=== PATIENT | female | born 1995 | race African-American/Black ===

== ENCOUNTER 2017-09-16 21:41 | Emergency (ER) | payer OTHER, MEDICAID ==
[~2017-09-16] VITALS: Ht 157.5 cm; Wt 95.3 kg
[~2017-09-16 21:41] MED LIST: ABILIFY2 MG ORAL; BACITRACIN15 GM TOPIC; BACTRIM-DS1 EA ORAL; BACTROBAN NASAL1 GM NASAL; BENADRYL25 MG ORAL; HYDROCORTISONE28 G2 TP; KEFLEX500 MG ORAL; KENALOG 0.1% CR15 GM APPLIC; MEDROL DOSEPAK4 MG ORAL; MIRALAX17 GM ORAL; PROTONIX40 MG ORAL; RESTORIL15 MG ORAL; RISPERDAL1 MG ORAL; SEROQUEL50 MG ORAL
[2017-09-16] MEDS ORDERED: Lidocaine 1% Plain 30 ml INJ ONE (23:15)
[2017-09-17] MEDS ORDERED: Bacitracin Oint UD TOPIC ONE (00:30)
[2017-09-17 00:33] VITALS: BP 123/78
[2017-09-17] MEDS ORDERED: IBUPROFEN600 MG ORAL (00:36)
[2017-09-17 00:37] VITALS: BP 123/78
--- NOTE | 2017-09-17 05:45 | Emergency Room Report ---
History of Present Illness General Chief Complaint: Laceration Source: Patient Present Illness HPI 22-year-old female, presenting with right finger laceration. 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, male sustained laceration middle finger on the inside and outside, pain with movement , no other injuries tetanus is up to date Allergies: Coded Allergies: No Known Allergies (Unverified , 06/28/12) Patient History Past Medical History: see triage record Past Surgical History: none Pertinent Family History: none Last Menstrual Period: 09/05/17 Reviewed Nursing Documentation: PMH: Agreed, PSxH: Agreed Nursing Documentation-PMH Hx Cardiac Problems: No - Eczema Hx Cancer: No Hx Gastrointestinal Problems: No Hx Neurological Problems: No Review of Systems All Other Systems: negative except mentioned in HPI Physical Exam Vital Signs Date Time Temp Pulse Resp B/P (MAP) Pulse Ox O2 Delivery O2 Flow Rate FiO2 09/16/17 21:55 98.6 99 18 119/76 99 Room Air Sp02 EP Interpretation: reviewed, normal General Appearance: normal inspection, well appearing, no apparent distress, alert, GCS 15, non-toxic Head: normocephalic, atraumatic Eyes: bilateral eye normal inspection, bilateral eye PERRL, bilateral eye EOMI ENT: normal ENT inspection, normal pharynx, normal voice, moist mucus membranes Neck: normal inspection, full range of motion, supple Respiratory: normal inspection, lungs clear, normal breath sounds, no respiratory distress, no retraction, no wheezing, speaking full sentences, chest symmetrical Cardiovascular #1: normal inspection, regular rate, rhythm, no edema, normal capillary refill Cardiovascular #2: 2+ radial (R), 2+ radial (L) Gastrointestinal: normal inspection, non tender, soft, non-distended, no guarding Musculoskeletal: other - Right middle finger with mild edema, laceration noted 1 cm palmar aspect and dorsal aspect, no active bleeding, slightly gaping, limited range of motion secondary to pain, FDS and FDP and Neurologic: normal inspection, alert, oriented x3, responsive, motor strength/ tone normal, sensory intact, normal gait, speech normal Psychiatric: normal inspection, judgement/insight normal, memory normal Skin: normal inspection, normal color, no rash, warm/dry, well hydrated, normal turgor Procedures Laceration/Wound Repair Laceration/Wound Repair : Consent: Verbal Wound Location: upper extremity Wound's Depth, Shape: superficial Wound Length (cm): 3 - = Wound Explored: clean Irrigated w/ Saline (ccs): 500 Betadine Prep?: Yes Anesthesia: 1% Lidocaine Volume Anesthetic (ccs): 5 Wound Repaired With: sutures Suture Size/Type: 4:0 Number of Sutures: 7 Layer Closure?: Yes Sterile Dressing Applied?: Yes Splint Applied?: No Sling Applied?: No Patient Tolerated: Well Complications: None Medical Decision Making Diagnostic Impression: Primary Impression: Hand contusion Additional Impression: Laceration ER Course 22-year-old female with right sided finger laceration and pain after lender fell onto her hand Laceration Rule out fracture ER course: Laceration repaired, bacitracin with sterile dressing applied. Disposition: Patient will be discharged home. Strict return precautions discussed with patient such as fever, chills, increasing bleeding to site, purulent drainage, rapid swelling or redness to area. Patient verbalizes understanding. Patient sis informed of inevitable scar that will result from laceration despite repair. Pt instructed to avoid sun exposure to decrease the appearance of scar. Patient instructed to return to ED or their primary care doctor in 14 days for removal of sutures. Patient agrees with plan. Please note that this Emergency Department Report was dictated using [employer] technology software, occasionally this can lead to erroneous entry secondary to interpretation by the dictation equipment Xray: Right hand 3 view Indication: Pain EP Interpretation: Yes Interpretation: No dislocation, no soft tissue swelling, no fractures Impression: No acute disease Electronically signed by Zita Ray MD Last Vital Signs Date Time Temp Pulse Resp B/P (MAP) Pulse Ox O2 Delivery O2 Flow Rate FiO2 09/17/17 00:37 98.6 73 18 123/78 99 Room Air Disposition: HOME, SELF-CARE Condition: Improved Scripts Ibuprofen* (MOTRIN*) 600 Mg Tablet 600 MG ORAL Q8H Y for For Pain, #30 TAB 0 Refills Prov: Zita Ray M.D. 09/17/17 Referrals: NOT CHOSEN IPA/,REFERRING (PCP) Patient Instructions: Laceration Care, Adult, Contusion, [id number] Additional Instructions: FOLLOW UP WITH YOUR PRIMARY CARE DOCTOR OR EMERGENCY ROOM IN 14 DAYS FOR SUTURE REMOVAL Zita Ray M.D. Sep 17, 2017 05:45
--- NOTE | 2017-09-17 11:15 | Diagnostic Imaging Report ---
Clinical Indication:PAIN work injury, trauma, laceration third digit Technique: 3 views of the right hand Comparison: None Findings: There is marked ulnar minus variance. No acute fractures. No dislocations. Radiopaque foreign bodies are seen within the soft tissues adjacent to the third proximal phalanx. There is associated soft tissue swelling. No underlying bony disruption. Impression: No acute bony trauma Radiopaque foreign bodies seen within the soft tissues of the third digit. This was discussed by phone with Dr. Young in the emergency room at the time of interpretation
[2017-09-17] MEDS ORDERED: PROZAC20 MG ORAL (22:06)
[2017-09-17] MEDS ORDERED: ZYPREXA10 MG ORAL (22:06)
[2017-09-17] MEDS ORDERED: DOXYCYCLINE MO100 MG ORAL (23:22)
== END 2017-09-17 00:38 | disposition home or self-care (01) ==
LOC: EMR 22:18
DX: S61.222A Laceration with foreign body of right middle finger without damage to nail, initial encounter (principal); W29.0XXA Contact with powered kitchen appliance, initial encounter; Y92.511 Restaurant or cafe as the place of occurrence of the external cause; Y99.0 Civilian activity done for income or pay
CPT/HCPCS: 12002; 73130; 99284; J2001

== ENCOUNTER 2017-09-17 22:00 | Emergency (ER) | payer MEDICAID, OTHER ==
[~2017-09-17] VITALS: Ht 157.5 cm; Wt 95.3 kg
[~2017-09-17 22:00] MED LIST changes: +IBUPROFEN600 MG ORAL
[2017-09-17] MEDS ORDERED: PROZAC20 MG ORAL (22:06)
[2017-09-17] MEDS ORDERED: ZYPREXA10 MG ORAL (22:06)
[2017-09-17 22:26] VITALS: BP 141/94
[2017-09-17] MEDS ORDERED: Cephalexin 500mg cap ORAL ONE (23:15)
[2017-09-17] MEDS ORDERED: DOXYCYCLINE MO100 MG ORAL (23:22)
--- NOTE | 2017-09-17 23:22 | Emergency Room Report ---
History of Present Illness General Chief Complaint: Pain Source: Patient Present Illness HPI This is a 22-year-old female who is right-hand dominant. She presents with chief complaint for recheck on finger injury. She was seen here yesterday for trauma from work. Her hand was crushed by accusing machine. She had laceration to the right third finger and abrasion to the fourth finger. X-rays show foreign body. She was called back for evaluation. Patient said there swelling but pain is manageable. Did not have to take any medicine for it. No antibiotics. No fever or chills. No drainage. Allergies: Coded Allergies: No Known Allergies (Unverified , 06/28/12) Patient History Past Medical History: see triage record, old chart reviewed Past Surgical History: other Pertinent Family History: none Social History: Denies: smoking Last Menstrual Period: 09/02/17 Now: No : 0 Para: 0 Immunizations: other Reviewed Nursing Documentation: PMH: Agreed, PSxH: Agreed Nursing Documentation-PMH Hx Cardiac Problems: No - Eczema Hx Cancer: No Hx Gastrointestinal Problems: No History Of Psychiatric Problem: Yes - Schizoaffective Hx Neurological Problems: No Review of Systems Eye: Denies: eye pain, blurred vision ENT: Denies: ear pain, nose congestion, throat swelling Respiratory: Denies: cough, shortness of breath Cardiovascular: Denies: chest pain, palpitations Gastrointestinal: Denies: abdominal pain, diarrhea, nausea, vomiting Musculoskeletal: Denies: back pain, joint pain Skin: Denies: rash Neurological: Denies: headache, numbness Endocrine: Denies: increased thirst, increased urine Hematologic/Lymphatic: Denies: easy bruising All Other Systems: negative except mentioned in HPI Physical Exam Vital Signs Date Time Temp Pulse Resp B/P (MAP) Pulse Ox O2 Delivery O2 Flow Rate FiO2 09/17/17 22:02 99.0 83 14 141/94 99 09/17/17 22:26 Room Air vitals normal Sp02 EP Interpretation: reviewed, normal General Appearance: well appearing, no apparent distress, alert Head: normocephalic, atraumatic Eyes: bilateral eye PERRL, bilateral eye EOMI ENT: hearing grossly normal, normal pharynx Neck: full range of motion, supple, no meningismus Respiratory: chest non-tender, lungs clear, normal breath sounds Cardiovascular #1: regular rate, rhythm, no murmur Gastrointestinal: normal bowel sounds, non tender, no mass, no organomegaly, no bruit, non-distended, other - Right hand: Third finger wound looks clean. No evidence of infection. Fourth finger showed abrasion and serous discharge. No redness or warmth to both fingers Musculoskeletal: back normal, gait/station normal, normal range of motion Psychiatric: mood/affect normal Skin: warm/dry Medical Decision Making Diagnostic Impression: Primary Impression: Foreign body (FB) in soft tissue ER Course Patient presents with dramatic crush injury to her fingers. She has a laceration and foreign body. This does increase her risk for infection. Because there are multiple small foreign body in the wound is already sutured, will put her on antibiotics. If there is evidence of infection, she will need exploration. Other X-Ray Diagnostic Results Other X-Ray Diagnostic Results : X-Ray ordered: Right-hand x-rays # of Views/Limited Vs Complete: 3 View Indication: Swelling EP Interpretation: Yes Interpretation: no dislocation, no soft tissue swelling, no fractures, other - Scattered foreign bodies in right third finger Impression: Other - Foreign bodies in soft tissue Electronically Signed by: Electronically signed by Win Singer MD Last Vital Signs Date Time Temp Pulse Resp B/P (MAP) Pulse Ox O2 Delivery O2 Flow Rate FiO2 09/17/17 22:26 99.0 80 14 141/94 99 Room Air Status: improved Disposition: HOME, SELF-CARE Condition: Stable Scripts Doxycycline Monohydrate* (DOXYCYCLINE MONOHYDRATE*) 100 Mg Capsule 100 MG ORAL Q12H, #14 CAP 0 Refills Prov: WIN SINGER M.D. 09/17/17 Additional Instructions: Followup with your Worker's Comp. in 2 days for recheck. Return if worse. WIN SINGER M.D. Sep 17, 2017 23:22
[2017-09-17 23:25] VITALS: BP 141/94
--- NOTE | 2017-09-18 10:21 | Diagnostic Imaging Report ---
Indication: Trauma, pain, swelling, foreign body Technique: 3 views right hand Comparison: 17/01/17 Findings: Again demonstrated are multiple radiopaque metallic foreign bodies in the soft tissues of the third digit adjacent to the proximal phalanx. No acute fractures. No dislocations.. The joint spaces are preserved. Again demonstrated is marked ulnar minus variance. Impression: Proximal third phalangeal radiopaque soft tissue foreign bodies are again demonstrated, unchanged
== END 2017-09-17 23:25 | disposition home or self-care (01) ==
LOC: EMR 23:00
DX: S61.222D Laceration with foreign body of right middle finger without damage to nail, subsequent encounter (principal); W29.0XXD Contact with powered kitchen appliance, subsequent encounter
CPT/HCPCS: 99283

== ENCOUNTER 2018-02-12 05:57 | Emergency (ER) | payer MEDICAID, OTHER ==
[2018-02-12] VITALS (7 sets, daily range): BP systolic 106–121; BP diastolic 50–70
[~2018-02-12] VITALS: Ht 157.5 cm; Wt 63.5 kg
[~2018-02-12 05:57] MED LIST changes: +DOXYCYCLINE MO100 MG ORAL; +PROZAC20 MG ORAL; +ZYPREXA10 MG ORAL
[2018-02-12] MEDS ORDERED: LORazepam Inj 2mg/ml 1ml IV ONE (06:30)
[2018-02-12 07:01] LABS: BASOPHILS % (AUTO) 1.8 % (0.0-2.0); EOSINOPHILS % (AUTO) 0.7 % (0.0-3.0); HEMATOCRIT 42.6 % (37.0-47.0); HEMOGLOBIN 13.9 G/DL (12.0-16.0); LYMPHOCYTES % (AUTO) 14.8 % (20.0-45.0); MEAN CORPUSCULAR VOLUME 91 FL (80-99); MONOCYTES % (AUTO) 4.6 % (1.0-10.0); NEUTROPHILS % (AUTO) 78.1 % (45.0-75.0); PLATELET COUNT 529 K/UL (150-450); RED BLOOD COUNT 4.68 M/UL (4.20-5.40); RED CELL DISTRIBUTION WIDTH 12.3 % (11.6-14.8); WHITE BLOOD COUNT 7.1 K/UL (4.8-10.8)
[2018-02-12 07:10] LABS: ANION GAP 10 mmol/L (5-15); BLOOD UREA NITROGEN 4 mg/dL (7-18); CALCIUM 9.5 MG/DL (8.5-10.1); CARBON DIOXIDE 27 MMOL/L (21-32); CHLORIDE 102 MMOL/L (98-107); CREATININE 0.9 MG/DL (0.55-1.30); SODIUM 139 MMOL/L (136-145)
[2018-02-12 07:20] LABS: ALANINE AMINOTRANSFERASE 23 U/L (12-78); ALBUMIN 4.7 G/DL (3.4-5.0); ALKALINE PHOSPHATASE 110 U/L (46-116); ASPARTATE AMINO TRANSFERASE 21 U/L (15-37); BILIRUBIN,TOTAL 0.4 MG/DL (0.2-1.0); CREATINE KINASE 137 U/L (26-308)
--- NOTE | 2018-02-12 07:55 | Emergency Room Report ---
History of Present Illness General Chief Complaint: Behavioral Complaint Source: Patient (Jose Angel Holt M.D.) Present Illness HPI The patient presents hearing voices and with paranoid ideation. She took 25-27 Midol last night at 23:00. She tried smoking some grass. Also, she drank some wine. She was trying to quiet the voices. She's been off of her psychiatric medications for several days. She stopped because she was feeling okay. She denies any somatic complaints at this time and states that she is not . Usual meds are Zyprexa and Invega. The patient has a history of schizophrenia. She has had several ingestions and hospitalizations for suicidal ideation and gestures. No headache, dysuria, cough, diarrhea, joint pain. Eczema stable. (Jose Angel Holt M.D.) Allergies: Coded Allergies: No Known Allergies (Unverified , 02/12/18) Patient History Past Medical History: see triage record Social History: Reports: smoking, alcohol use, drug use Social History Narrative lives with boyfriend and brother Last Menstrual Period: one week ago Now: No Reviewed Nursing Documentation: PMH: Agreed; PSxH: Agreed (Jose Angel Holt M.D.) Nursing Documentation-PMH Hx Cardiac Problems: No - Eczema Hx Cancer: No Hx Gastrointestinal Problems: No History Of Psychiatric Problem: Yes - schizophrenia Hx Neurological Problems: No (Jose Angel Holt M.D.) Physical Exam Vital Signs Date Time Temp Pulse Resp B/P (MAP) Pulse Ox O2 Delivery O2 Flow Rate FiO2 02/12/18 05:57 78 16 117/73 98 Room Air Sp02 EP Interpretation: reviewed, normal General Appearance: well appearing, GCS 15, mild distress - vomiting and in pain Head: normocephalic Eyes: bilateral eye normal inspection, bilateral eye PERRL ENT: moist mucus membranes - vomit without blood Neck: supple Respiratory: lungs clear, normal breath sounds Cardiovascular #1: regular rate, rhythm Cardiovascular #2: 2+ radial (R) Gastrointestinal: normal inspection, normal bowel sounds, no mass, non- distended, no guarding, no rebound, tenderness - epigastric, overweight Genitourinary: no CVA tenderness Musculoskeletal: back normal, gait/station normal, normal range of motion Neurologic: alert, oriented x3, grossly normal Psychiatric: no suicidal/homicidal ideation, depressed affect Skin: warm/dry, rash - eczematous hyperpigmentation (Jose Angel Holt M.D.) Medical Decision Making Diagnostic Impression: Primary Impression: Suicide gesture Qualified Codes: X83.8XXA - Intentional self-harm by other specified means, initial encounter Additional Impressions: Polypharmacy overdose Tylenol ingestion Qualified Codes: T39.1X2A - Poisoning by 4-aminophenol derivatives, intentional self-harm, initial encounter Schizoaffective disorder, depressive type ER Course Patient presents with vomiting and epigastric pain and after taking overdose of Midol at 11 PM last night. Differential includes exacerbation of it's schizophrenia, suicidal gesture, aspirin or Tylenol overdose, electrolyte imbalance, gastritis amongst others. Patient needs to be evaluated with levels of medications. She'll be treated with IV hydration, Zofran and Pepcid. She will also be given a dose of her medication. The patient required repeat dose of Zofran. Tylenol level high but not toxic level. Needs to be repeated. Min alcohol. Rest of labs unremarkable. Repeat dose lower, not in toxic range. The patient is much calmer after observation and treatment. She denies suicidal ideation at this time. She was given her medication and no longer hears voices are feels paranoid. Attempts to contact her mother resulted in leaving a message. Discussed with mother who is not comfortable with discharging her daughter. She just left [facility] 3 days ago. They fill prescriptions for her medications. She understands that she is not suicidal at this time however she feels that her daughter still at risk. She is asking if we can give a IM shot this longer acting and I stated I could not do this without direction from her psychiatrist and her psychiatrist is not able to come in at this time. Also advised her that her daughter's, psychiatric or medical hold at this time. Psychiatrist = Dr. Ramsay . No answer. The patient is signed out to Dr. Ray. Laboratory Tests Test 02/12/18 06:40 02/12/18 08:50 02/12/18 12:30 White Blood Count 7.1 K/UL (4.8-10.8) Red Blood Count 4.68 M/UL (4.20-5.40) Hemoglobin 13.9 G/DL (12.0-16.0) Hematocrit 42.6 % (37.0-47.0) Mean Corpuscular Volume 91 FL (80-99) Mean Corpuscular Hemoglobin 29.7 PG (27.0-31.0) Mean Corpuscular Hemoglobin Concent 32.7 G/DL (32.0-36.0) Red Cell Distribution Width 12.3 % (11.6-14.8) Platelet Count 529 K/UL (150-450) H Mean Platelet Volume 7.1 FL (6.5-10.1) Neutrophils (%) (Auto) 78.1 % (45.0-75.0) H Lymphocytes (%) (Auto) 14.8 % (20.0-45.0) L Monocytes (%) (Auto) 4.6 % (1.0-10.0) Eosinophils (%) (Auto) 0.7 % (0.0-3.0) Basophils (%) (Auto) 1.8 % (0.0-2.0) Sodium Level 139 MMOL/L (136-145) Potassium Level 4.0 MMOL/L (3.5-5.1) Chloride Level 102 MMOL/L (98-107) Carbon Dioxide Level 27 MMOL/L (21-32) Anion Gap 10 mmol/L (5-15) Blood Urea Nitrogen 4 mg/dL (7-18) L Creatinine 0.9 MG/DL (0.55-1.30) Estimate Glomerular Filtration Rate > 60 mL/min (>60) Glucose Level 120 MG/DL (74-106) H Calcium Level 9.5 MG/DL (8.5-10.1) Total Bilirubin 0.4 MG/DL (0.2-1.0) Aspartate Amino Transferase (AST) 21 U/L (15-37) Alanine Aminotransferase (ALT) 23 U/L (12-78) Alkaline Phosphatase 110 U/L (46-116) Total Creatine Kinase 137 U/L (26-308) Total Protein 9.5 G/DL (6.4-8.2) H Albumin 4.7 G/DL (3.4-5.0) Globulin 4.8 g/dL Albumin/Globulin Ratio 1.0 (1.0-2.7) Lipase 60 U/L (73-393) L Salicylates Level 2.3 ug/mL (2.8-20) L Acetaminophen Level 50 MCG/ML (10-30) H 25 MCG/ML (10-30) Serum Alcohol 3 mg/dL Urine Color Yellow Urine Appearance Clear Urine pH 7 (4.5-8.0) Urine Specific Shirley 1.010 (1.005-1.035) Urine Protein Negative (NEGATIVE) Urine Glucose (UA) Negative (NEGATIVE) Urine Ketones 1+ (NEGATIVE) H Urine Occult Blood 1+ (NEGATIVE) H Urine Nitrite Negative (NEGATIVE) Urine Bilirubin Negative (NEGATIVE) Urine Urobilinogen Normal MG/DL (0.0-1.0) Urine Leukocyte Esterase Negative (NEGATIVE) Urine RBC 2-4 /HPF (0 - 2) H Urine WBC 0-2 /HPF (0 - 2) Urine Squamous Epithelial Cells Moderate /LPF (NONE/OCC) H Urine Bacteria Few /HPF (NONE) Urine HCG, Qualitative Negative (NEGATIVE) Urine Opiates Screen Negative (NEGATIVE) Urine Barbiturates Screen Negative (NEGATIVE) Phencyclidine (PCP) Screen Negative (NEGATIVE) Urine Amphetamines Screen Negative (NEGATIVE) Urine Benzodiazepines Screen Negative (NEGATIVE) Urine Cocaine Screen Negative (NEGATIVE) Urine Marijuana (THC) Screen Positive (NEGATIVE) H (Jose Angel Holt M.D.) ER Course Received signout from Dr. Holt. 22-year-old female with schizoaffective disorder, depression. At suicide attempt. Now is medically clear. Patient is not on 5150 hold. Patient is currently with her mom at bedside, pending psych eval in the morning (Zita Ray M.D.) ER Course Patient was seen by Dr. Chavira for psychiatric consult. Per psychiatrist recommendations patient was given Haldol Decanoate. The patient was cleared for discharge by psychiatrist. (Salbador Garcia) Rhythm Strip Diag. Results EP Interpretation: yes Rhythm: NSR, no PVC's, no ectopy (Jose Angel Holt M.D.) Last Vital Signs Date Time Temp Pulse Resp B/P (MAP) Pulse Ox O2 Delivery O2 Flow Rate FiO2 02/12/18 19:28 60 14 107/50 100 Room Air 02/12/18 17:35 98.0 98.0 Status: improved (Jose Angel Holt M.D.) Status: improved (Salbador Garcia) Disposition: HOME, SELF-CARE Condition: Stable Scripts Risperidone* (RISPERDAL*) 2 Mg Tablet 3 MG ORAL DAILY, #30 TAB 0 Refills Prov: Salbador Garcia 02/13/18 Referrals: NOT CHOSEN IPA/,REFERRING (PCP) Jose Angel Holt M.D. Feb 12, 2018 07:55 Zita Ray M.D. Feb 12, 2018 20:04 Salbador Garcia Feb 13, 2018 14:16
[2018-02-12] MEDS ORDERED: DiphenhydrAMINE 50mg/ml Inj IVP ONE (08:15)
[2018-02-12 09:11] LABS: APPEARANCE,URINE CLEAR; BILIRUBIN, URINE NEGATIVE (NEGATIVE); COLOR,URINE YELLOW; GLUCOSE, URINE (UA) NEGATIVE (NEGATIVE); KETONES,URINE 1+ (NEGATIVE); LEUKOCYTE ESTERASE ,URINE NEGATIVE (NEGATIVE); NITRITE,URINE NEGATIVE (NEGATIVE); PH,URINE 7 (4.5-8.0); PROTEIN,URINE NEGATIVE (NEGATIVE); UROBILINOGEN,URINE NORMAL MG/DL (0.0-1.0)
[2018-02-13 00:10] VITALS: BP 124/71
[2018-02-13 03:05] VITALS: BP 110/71
[2018-02-13 05:16] VITALS: BP 104/68
[2018-02-13 11:08] VITALS: BP 108/61
[2018-02-13] MEDS ORDERED: RISPERDAL2 MG ORAL (14:07)
[2018-02-13] MEDS ORDERED: Haloperidol Decanoate 50mg Inj IM ONE (14:15)
[2018-02-13 14:34] VITALS: BP 108/61
--- NOTE | 2018-02-14 22:59 | Consultation ---
History of Present Illness General Date patient seen: Feb 13, 2018 Chief Complaint: Behavioral Complaint Present Illness HPI the pt has hx of schizophrenia and noncompliance with psych meds the pt has hx of od due ah and not taking meds. She took 25-27 Midol and was brought in to er. the pt denied si and stated the ah improved the pt agreed to take long acting shot. the pt is not suicidal/homicidal Allergies: Coded Allergies: No Known Allergies (Unverified , 02/12/18) Medication History Scheduled Aripiprazole* (Abilify*), Unknown Dose ORAL DAILY, (Reported) Bacitracin (Bacitracin), 1 APPLIC TOPIC THREE TIMES A DAY Cephalexin* (Keflex*), 500 MG ORAL EVERY 6 HOURS Cephalexin* (Keflex*), 500 MG ORAL Q6H Doxycycline Monohydrate* (Doxycycline Monohydrate*), 100 MG ORAL Q12H Fluoxetine Hcl* (Prozac*), 20 MG ORAL DAILY, (Reported) Hydrocortisone Acetate 1% Onit (Hydrocortisone 1% Oint), 28 GM TP DAILY Methylprednisolone (Methylprednisolone*), 4 MG ORAL .as directed Mupirocin Nasal (Bactroban Nasal), 1 APPLIC NASAL TWICE A DAY Olanzapine* (Zyprexa*), 20 MG ORAL DAILY, (Reported) Pantoprazole* (Protonix*), 40 MG ORAL DAILY Quetiapine Fumarate (Seroquel), 50 MG ORAL TWICE A DAY, (Reported) Risperidone* (Risperdal*), 2 MG ORAL BEDTIME Risperidone* (Risperdal*), 3 MG ORAL DAILY Triamcinolone Acet (Triamcinolone Acetonide), 1 APPLIC APPLIC BID Trimethoprim/Sulfamethoxazole (Bactrim Ds Tablet), 1 TAB ORAL TWICE A DAY Scheduled PRN Diphenhydramine Hcl* (Benadryl*), 25 MG ORAL Q6H PRN for Itching Ibuprofen* (Motrin*), 600 MG ORAL Q8H PRN for For Pain Polyethylene Glycol* (Miralax*), 17 GM ORAL HSPRN PRN for Constipation Temazepam* (Restoril*), 15 MG ORAL HSPRN PRN for Insomnia Patient History Limited by: medical condition History Provided By: Patient, Medical Record, PMD Healthcare decision maker Resuscitation status Advanced Directive on File Past Medical/Surgical History Past Medical/Surgical History: (1) Medical clearance for psychiatric admission (2) Suicidal overdose (3) Diphenhydramine overdose (4) Tylenol ingestion (5) Psychiatric illness (6) Anemia (7) Tylenol overdose (8) Suicidal overdose (9) Major depression (10) Medical clearance for psychiatric admission (11) Psychiatric illness (12) Drug overdose (13) Medical clearance for psychiatric admission (14) Anemia (15) Medical clearance for psychiatric admission (16) Atopic dermatitis (17) Skin infection (18) Eczema (19) Facial cellulitis (20) Laceration (21) Hand contusion Review of Systems Psychiatric: Reports: prior hx, anxiety, depressed feelings, hallucinations Physical Exam General Appearance: no apparent distress, alert Neurologic: oriented x 3, responsive, depressed affect Height (Feet): 5 Height (Inches): 2.00 Weight (Pounds): 140 Assessment/Plan Assessment/Plan schizophrenia not a dts haldol dec 50mg im risperdal 3mg qhs dc to family f/u with op psych Bharti Chavira M.D. Feb 14, 2018 22:59
== END 2018-02-13 14:36 | disposition home or self-care (01) ==
LOC: EDBD 05:57 → EMR 07:18
DX: F25.1 Schizoaffective disorder, depressive type (principal); T39.1X2A Poisoning by 4-Aminophenol derivatives, intentional self-harm, initial encounter; F17.200 Nicotine dependence, unspecified, uncomplicated; F12.10 Cannabis abuse, uncomplicated; F41.9 Anxiety disorder, unspecified; Y92.9 Unspecified place or not applicable
CPT/HCPCS: 36415; 80053; 80307; 80329; 81003; 81025; 82550; 83690; 85025; 96374; 96375; 99285; J0780; J1200; J1631; S0028

== ENCOUNTER 2018-02-28 21:10 | Emergency (ER) | payer MEDICAID ==
[~2018-02-28] VITALS: Ht 157.5 cm; Wt 95.3 kg
[~2018-02-28 21:10] MED LIST changes: +RISPERDAL2 MG ORAL
[2018-02-28] MEDS ORDERED: PROZAC40 MG ORAL (21:53)
[2018-02-28 22:00] VITALS: BP 108/69
--- NOTE | 2018-02-28 22:32 | Emergency Room Report ---
History of Present Illness General Chief Complaint: Suicidal Source: Patient, Family Member, Medical Record Present Illness HPI Is a 22-year-old female with a history of bipolar with multiple admission in the past. She presents with chief complaint of feeling depressed and suicidal. She was brought in by her mom. Mom said she was agitated at home. She's calm now. No particular plan. No fever or chills. No nausea no vomiting. Denies any other complaint. Denies any drugs or alcohol. Allergies: Coded Allergies: No Known Allergies (Unverified , 02/12/18) Patient History Past Medical History: see triage record, old chart reviewed Past Surgical History: none Family History: none Social History: tobacco use Last Menstrual Period: now Now: No Immunizations: other Reviewed Nursing Documentation: PMH: Agreed; PSxH: Agreed Nursing Documentation-PMH Hx Cardiac Problems: No - Eczema Hx Cancer: No Hx Gastrointestinal Problems: No History Of Psychiatric Problem: Yes - schizoeffective Hx Neurological Problems: No Review of Systems ENT: Denies: sore throat Cardiovascular: Denies: chest pain, palpitations Gastrointestinal/Abdominal: Denies: nausea, vomiting, diarrhea Musculoskeletal: Denies: back problems Skin: Denies: rash Psychiatric: Reports: suicidal/homicidal ideations Neurological: Denies: LAFLEUR, seizures All Other Systems: negative except mentioned in HPI Physical Exam Vital Signs Date Time Temp Pulse Resp B/P (MAP) Pulse Ox O2 Delivery O2 Flow Rate FiO2 02/28/18 21:47 98.7 81 15 108/69 96 Room Air 98.8 vitals normal Sp02 EP Interpretation: reviewed, normal General Appearance: alert/responsive, no apparent distress, non-toxic Head: normocephalic, atraumatic Eyes: PERRL, EOMI ENT: oropharynx normal Neck: supple/symm/no masses Respiratory: effort normal, no rhonchi, no wheezing Cardiovascular: no murmur, gallop, rub Gastrointestinal: non-tender, no mass, non-distended, no rebound/guarding, normal bowel sounds Musculoskeletal: gait & station normal Neurologic: oriented x3, sensory intact, motor strength/tone normal Psychiatric: other - depressed affect Skin: no rash, normal palpation Medical Decision Making Diagnostic Impression: Primary Impression: Suicidal ideation Additional Impression: Major depression Qualified Codes: F33.2 - Major depressive disorder, recurrent severe without psychotic features ER Course Patient presents with depression with suicidal thoughts. She is calm here. I discussed the situation with mom and patient. They preferred that she goes to a psychiatric hospital. Because she is calm and willing to go voluntarily and mom is willing to take her to [facility]. Because of that, I will discharge patient to mom who will then take her to [facility]. This will save them time. Last Vital Signs Date Time Temp Pulse Resp B/P (MAP) Pulse Ox O2 Delivery O2 Flow Rate FiO2 02/28/18 22:00 98.8 81 15 108/69 96 Room Air 98.8 Status: unchanged Disposition: HOME, SELF-CARE Condition: Stable Referrals: NOT CHOSEN IPA/MD,REFERRING (PCP) Patient Instructions: Suicidal Feelings: How to Help Yourself Additional Instructions: Go directly to a psychiatric facility. Return if symptom worsen. CARL MOCK M.D. Feb 28, 2018 22:32
[2018-02-28 22:36] VITALS: BP 108/69
== END 2018-02-28 22:35 | disposition home or self-care (01) ==
LOC: EMR 22:00
DX: F33.2 Major depressive disorder, recurrent severe without psychotic features (principal); R45.850 Homicidal ideations; R45.851 Suicidal ideations; F25.9 Schizoaffective disorder, unspecified
CPT/HCPCS: 99283